=== PATIENT | female | born 1990 | race African-American/Black ===

== ENCOUNTER 2018-08-12 11:43 | Inpatient (IN) | payer OTHER ==
[2018-08-12 13:06] VITALS: BMI 20.5
--- NOTE | 2018-08-12 15:34 | HP ---
CIWA Score - Admission Criteria OASAS Guidelines: Admission for Medically Managed Detox: Requires at least one of the followin. CIWA greater than 12 2. Seizures within the past 24 hours 3. Delirium tremens within the past 24 hours 4. Hallucinations within the past 24 hours 5. Acute intervention needed for co occurring medical disorder 6. Acute intervention needed for co occurring psychiatric disorder 7. Severe withdrawal that cannot be handled at a lower level of care (continued vomiting, continued diarrhea, abnormal vital signs) requiring intravenous medication and/or fluids 8. Admission ROS S - HPI Chief Complaint: "I Need Help." Patient is here for Rehab for Opiate and Alcohol use. Allergies/Adverse Reactions: Allergies Allergy/AdvReac Type Severity Reaction Status Date / Time No Known Drug Allergies Allergy Verified 08/12/18 16:45 shellfish derived Allergy Verified 08/12/18 13:01 History of Present Illness: Patient is a 27 YO Female here for Rehab for Opiates and alcohol. This is patient's first Detox / Rehab Admission. Patient initially contemplated Detox admission; however, she reports that she Does not feel that she needs Detox from Alcohol and that the last time that she used Percocet was 2 days ago and that she feels that Withdrawal symptoms are minimal at this time. Patient offered opportunity to have Detox Admission prior to Rehab admission; however, Patient elects to have Rehab admission at this time. Patient is currently a client at [facility] ( [place], [place]). Search Terms: Ejjuan daniel Carrcker, 1990 Search Date: 08/12/2018 03:27:58 PM The Drug Utilization Report below displays all of the controlled substance prescriptions, if any, that your patient has filled in the last twelve months. The information displayed on this report is compiled from pharmacy submissions to the Department, and accurately reflects the information as submitted by the pharmacies. This report was requested by: Ruslan Warren | Reference #: [id number] There are no results for the search terms that you entered. Exam Limitations: No Limitations - Ebola screening Have you traveled outside of the country in the last 21 days: No Have you had contact with anyone from an Ebola affected area: No Have you been sick,other than usual withdrawal symptoms: No Do you have a fever: No - Review of Systems Constitutional: Loss of Appetite, Night Sweats, Changes in sleep EENT: reports: No Symptoms Reported Respiratory: reports: No Symptoms reported Cardiac: reports: No Symptoms Reported GI: reports: No Symptoms Reported : reports: No Symptoms Reported Musculoskeletal: reports: Back Pain (History of Injury To Lower Back Area (2017) .) Integumentary: reports: No Symptoms Reported Neuro: reports: Tremors Endocrine: reports: No Symptoms Reported Hematology: reports: No Symptoms Reported Psychiatric: reports: Judgement Intact, Mood/Affect Appropiate, Orientated x3, Anxious (No Medication Prescribed in Past.), Depressed (No Medication Prescribed in Past.) Other Systems: Reviewed and Negative Patient History - Patient Medical History Hx Anemia: No Hx Asthma: No Hx Chronic Obstructive Pulmonary Disease (COPD): No Hx Cancer: No Hx Cardiac Disorders: No Hx Congestive Heart Failure: No Hx Hypertension: No Hx Hypercholesterolemia: No Hx Pacemaker: No HX Cerebrovascular Accident: No Hx Seizures: No Hx Dementia: No Hx Diabetes: No Hx Gastrointestinal Disorders: No Hx Liver Disease: No Hx Genitourinary Disorders: No Hx Sexually Transmitted Disorders: No Hx Renal Disease (ESRD): No Hx Thyroid Disease: No Hx Human Immunodeficiency Virus (HIV): No (Last Tested approx. 2 months ago: NEGATIVE.) Hx Hepatitis C: No (Last Tested within last few months: NEGATIVE.) Hx Depression: Yes (No Medication in Past.) Hx Suicide Attempt: No (PATIENT DENIES CURRENT SI / HI.) Hx Bipolar Disorder: No Hx Schizophrenia: No Other Medical History: DENIES. - Patient Surgical History Past Surgical History: No Hx Neurologic Surgery: No Hx Cataract Extraction: No Hx Cardiac Surgery: No Hx Lung Surgery: No Hx Breast Surgery: No Hx Breast Biopsy: No Hx Abdominal Surgery: No Hx Appendectomy: No Hx Cholecystectomy: No Hx Genitourinary Surgery: No Hx Section: No Hx Orthopedic Surgery: No Hx Hysterectomy: No Other Surgical History: DENIES. Anesthesia Reaction: No - PPD History Previous Implant?: Yes Documented Results: Negative w/o proof Implanted On Prior R Admission?: No PPD to be Administered?: Yes - Reproductive History Patient is a Female of Child Bearing Age (11 -55 yrs old): Yes Last Menstrual Period: 08/04/18 Patient : No - Smoking Cessation Smoking history: Current every day smoker Have you smoked in the past 12 months: Yes Aproximately how many cigarettes per day: 6 Cigars Per Day: 0 Hx Chewing Tobacco Use: No Initiated information on smoking cessation: Yes 'Breaking Loose' booklet given: 08/12/18 (TO BE GIVEN TO PATIENT ON UNIT.) - Substance & Tx. History Hx Alcohol Use: Yes Hx Substance Use: Yes Substance Use Type: Alcohol, Marijuana, Opiates Hx Substance Use Treatment: Yes (Currently a Client at [facility] ([place], [place])) - Substances abused Alcohol Substance route: Oral Frequency: Daily Amount used: 5TH HENNESY Age of first use: 19 Date of last use: 08/10/18 Marijuana/Hashish Substance route: Smoking Frequency: Daily Amount used: 4 BLUNTS Age of first use: 21 Date of last use: 08/10/18 Other Other (specify): PERCOCET (NON-PRESCRIBED). Substance route: Oral Frequency: Daily Amount used: 2-3: 10-325 mg tABLETS Age of first use: 24 Date of last use: 08/10/18 Family Disease History - Family Disease History Family Disease History: Other: Mother (HIV) Admission Physical Exam [facility] - Vital Signs Vital Signs: Vital Signs - 24 hr 08/12/18 08/12/18 13:00 15:18 Temperature 98.6 F 98.6 F Pulse Rate 69 69 Respiratory 18 18 Rate Blood Pressure 112/79 112/79 - Physical General Appearance: Yes: No Apparent Distress, Nourished, Appropriately Dressed , Tremorous HEENTM: Yes: Hearing grossly Normal, Normocephalic, Normal Voice, ZAID, Pharynx Normal Respiratory: Yes: Chest Non-Tender, Lungs Clear, No Respiratory Distress, No Accessory Muscle Use Neck: Yes: No masses,lesions,Nodules, Supple, Trachea in good position Breast: Yes: Breast Exam Deferred Cardiology: Yes: Regular Rhythm, Regular Rate, S1, S2 Abdominal: Yes: Normal Bowel Sounds, Non Tender, Flat, Soft Genitourinary: Yes: Within Normal Limits Back: Yes: Decreased Range of Motion Musculoskeletal: Yes: Gait Steady, Back pain Extremities: Yes: Normal Capillary Refill, Normal Range of Motion, Non-Tender, Tremors Neurological: Yes: Fully Oriented, Alert, Normal Mood/Affect, Normal Response Integumentary: Yes: Normal Color, Dry, Warm Lymphatic: Yes: Within Normal Limits - Diagnostic (1) Alcohol dependence, uncomplicated Current Visit: Yes Status: Chronic (2) Uncomplicated opioid dependence Current Visit: Yes Status: Chronic (3) Nicotine dependence Current Visit: Yes Status: Chronic Qualifiers: Nicotine product type: cigarettes Substance use status: uncomplicated Qualified Code(s): F17.210 - Nicotine dependence, cigarettes, uncomplicated (4) Cannabis dependence, uncomplicated Current Visit: Yes Status: Chronic Cleared for Admission [facility] - Detox or Rehab Claeared for Rehab Admission: Yes Breathalyzer - Breathalyzer Breathalyzer: 0.025 Urine Drug Screen - Test Device Lot number: [id number] Expiration date: 05/09/20 - Control Is test valid?: Yes - Results Drug screen NEGATIVE: No Urine drug screen results: THC-Marijuana, OXY-Oxycodone Inpatient Rehab Admission - Rehab Decision to Admit Inpatient rehab admission?: Yes - Initial Determination Are CD services needed?: Yes Free of communicable disease: Yes Not in need of hospitalization: Yes - Rehab Admission Criteria Previous failed treatment: Yes Poor recovery environment: Yes Comorbidities: No Lacks judgement: No Patient is meeting Inpatient Rehab admission criteria:: Yes
[2018-08-12] MEDS ORDERED: MAGNESIUM CITRATE 300 ML BOTTLE PO PRN (16:04)
[2018-08-12] MEDS ORDERED: MENTHOL/PHENOL 1 EACH UD MM PRN (16:04)
[2018-08-12] MEDS ORDERED: P-EPHED 60MG/TRIPROLIDI 2.5MG TABLET PO PRN (16:04)
[2018-08-12] MEDS ORDERED: MAGNESIUM HYDROX 2400MG/30ML ORAL SUSPENSION 30 ML CUP PO PRN (16:04)
[2018-08-12] MEDS ORDERED: guaiFENesin 200 MG/10 ML 10 ML UNIT-DOSE CUPS PO PRN (16:04)
[2018-08-12] MEDS ORDERED: MAG HYDROX/AL HYDROX/SIMETH 30 ML UNIT-DOSE CUP PO PRN (16:04)
[2018-08-12] MEDS ORDERED: NICOTINE POLACRILEX 2 MG GUM BUC PRN (16:04)
[2018-08-12] MEDS ORDERED: LOPERAMIDE HCL 2 MG CAPSULE PO PRN (16:04)
[2018-08-12] MEDS ORDERED: TUBERCULIN PPD 5 TU/0.1ML VIAL ID ONE (17:58)
[2018-08-12] MEDS: NICOTINE 21 MG/24 HOURS TOPICAL PATCH TD SCH (18:16)
[2018-08-12] MEDS: THIAMINE HCL 100 MG TABLET (FP) PO SCH (21:22)
[2018-08-12] MEDS: METHOCARBAMOL 500 MG TABLET PO PRN (21:24)
[2018-08-13] MEDS: PRENATAL VITAMINS W/ FOLIC ACID TABLET (FP) PO SCH (09:38)
[2018-08-13] MEDS: NICOTINE 21 MG/24 HOURS TOPICAL PATCH TD SCH (09:38)
[2018-08-13] MEDS: METHOCARBAMOL 500 MG TABLET PO PRN (09:38)
[2018-08-13 11:44] LABS: BASO % 1.1 % (0-2.0); EOS % 1.4 % (0-4.5); HEMATOCRIT 40.6 % (32.4-45.2); HEMOGLOBIN 13.8 GM/dL (10.7-15.3); LYMPH % 44.7 % (8-40); MEAN CELL VOLUME 91.1 fl (80-96); MEAN PLT VOLUME 8.9 fl (7.5-11.1); MONO % 10.5 % (3.8-10.2); NEUT % 42.3 % (42.8-82.8); PLATELET COUNT 258 K/MM3 (134-434); RBC 4.45 M/mm3 (3.60-5.2); RDW 13.3 % (11.6-15.6)
[2018-08-13 12:00] LABS: ALBUMIN 3.9 g/dl (3.4-5.0); BILIRUBIN,TOTAL 0.4 mg/dL (0.2-1); CALCIUM 9.5 mg/dL (8.5-10.1); CREATININE 0.8 mg/dL (0.55-1.3); POTASSIUM 4.3 mmol/L (3.5-5.1)
[2018-08-13] MEDS: hydrOXYzine PAMOATE 50 MG CAPSULE (FP) PO PRN ×2 (14:27→21:20)
--- NOTE | 2018-08-13 14:27 | PN ---
[facility] Progress Note Note: PT ADMITTED YESTERDAY. CAME TO THE NURSING STATION AND SOBBING. REPORTS SEVERE ANXIETY AND NOT SLEEPING WELL. REPORTS HX OF DEPRESSION AND HAS BEEN UNDER PSYCHIATRIC CARE IN THE PAST. REQUESTS FOR PSYCH FOLLOW UP. ALERT O X 3. DENIES S/H/I. Vital Signs 08/13/18 06:50 Temperature 97.6 F Pulse Rate 57 L Respiratory 18 Rate Blood Pressure 125/82 Laboratory Tests 08/12/18 08/13/18 08/13/18 15:19 08:40 08:40 WBC 3.0 L RBC 4.45 Hgb 13.8 Hct 40.6 MCV 91.1 MCH 31.0 MCHC 34.0 RDW 13.3 Plt Count 258 MPV 8.9 Absolute Neuts (auto) 1.3 L Neutrophils % 42.3 L Lymphocytes % 44.7 H Monocytes % 10.5 H Eosinophils % 1.4 Basophils % 1.1 Nucleated RBC % 0 Sodium 137 Potassium 4.3 Chloride 104 Carbon Dioxide 29 Anion Gap 4 L BUN 9 Creatinine 0.8 Est GFR (CKD-EPI)AfAm 117.93 Est GFR (CKD-EPI)NonAf 101.75 Random Glucose 92 Calcium 9.5 Total Bilirubin 0.4 AST 13 L ALT 26 Alkaline Phosphatase 53 Total Protein 7.0 Albumin 3.9 POC Urine HCG, Qual Negative RPR Titer HIV 1&2 Antibody Screen HIV P24 Antigen 08/13/18 08/13/18 08:40 08:40 WBC RBC Hgb Hct MCV MCH MCHC RDW Plt Count MPV Absolute Neuts (auto) Neutrophils % Lymphocytes % Monocytes % Eosinophils % Basophils % Nucleated RBC % Sodium Potassium Chloride Carbon Dioxide Anion Gap BUN Creatinine Est GFR (CKD-EPI)AfAm Est GFR (CKD-EPI)NonAf Random Glucose Calcium Total Bilirubin AST ALT Alkaline Phosphatase Total Protein Albumin POC Urine HCG, Qual RPR Titer Nonreactive HIV 1&2 Antibody Screen Negative HIV P24 Antigen Negative LABILE MOOD INSOMNIA PLAN:F/U WITH PSYCH CONSULT. ENSURE PLUS REQUESTED INCREASE PO FLUID.
[2018-08-13] MEDS: THIAMINE HCL 100 MG TABLET (FP) PO SCH (21:19)
[2018-08-13] MEDS: MELATONIN 5 MG TABLETS PO PRN (21:20)
[2018-08-14] MEDS: NICOTINE 21 MG/24 HOURS TOPICAL PATCH TD SCH (09:02)
[2018-08-14] MEDS: PRENATAL VITAMINS W/ FOLIC ACID TABLET (FP) PO SCH (09:02)
[2018-08-14] MEDS: METHOCARBAMOL 500 MG TABLET PO PRN (09:04)
[2018-08-14] MEDS ORDERED: PT OWN MED DRAWER 7, Y5N ONE (10:09)
--- NOTE | 2018-08-14 14:23 | CONSULT ---
[facility] Psychiatric Consult - Data Date of interview: 08/14/18 Admission source: [facility] Identifying data: Direct admission to [address] for this 27 y/o AA female, self-referred for rehabilitative care to address addictions (cannabis + opiates) co-morbid with nicotine dependence and a mood disorder. Patient is , no children, domiciled, unemployed and supported on welfare. Substance Abuse History: Discussed in this session. Details in the current [facility] report (validated bty the patient as accurate) : Smoking history: Current every day smoker. Have you smoked in the past 12 months: Yes. Aproximately how many cigarettes per day: 6. Cigars Per Day: 0. Hx Chewing Tobacco Use: No. Initiated information on smoking cessation: Yes. 'Breaking Loose' booklet given : 08/12/18 (TO BE GIVEN TO PATIENT ON UNIT.). - Substance & Tx. History. Hx Alcohol Use: Yes. Hx Substance Use: Yes. Substance Use Type: Alcohol, Marijuana, Opiates. Hx Substance Use Treatment: Yes (Currently a Client at [facility] ([place], [place])). - Substances abused. Alcohol. Substance route: Oral. Frequency: Daily. Amount used: 5TH HENNESY. Age of first use: 19. Date of last use: 08/10/18. Marijuana/Hashish. Substance route: Smoking. Frequency: Daily. Amount used: 4 BLUNTS. Age of first use: 21. Date of last use: 08/10/18. Other. Other (specify): PERCOCET (NON-PRESCRIBED). Substance route: Oral. Frequency: Daily. Amount used: 2-3: 10-325 mg tABLETS. Age of first use: 24. Date of last use: 08/10/18 Medical History: Patient endorses good general health. Psychiatric History: Patient admits to a distant history of psychiatric hospitalizations ([place]) during childhood for behavioral disturbances. No psychiatric hospitalizations for several years (last admission to a mental institution was in childhood). Ms Zurita indicates that she has been prescribed sertraline for depression + anxiety in the past (not taken for months). She is currently attending the [facility] in the [place]. History of self-mutilation (cutting). No episode since adolescence. Physical/Sexual Abuse/Trauma History: Patient denies history of abuse. Additional Comment: Urine drug screen results: THC-Marijuana, OXY-Oxycodone. Noted. Mental Status Exam - Mental Status Exam Alert and Oriented to: Time, Place, Person Cognitive Function: Good Patient Appearance: Well Groomed (thin habitus, neatly groomed) Mood: Hopeful, Euthymic Affect: Appropriate, Normal Range Patient Behavior: Appropriate (well-mannered), Cooperative Speech Pattern: Clear, Appropriate Voice Loudness: Normal Thought Process: Intact, Goal Oriented Thought Disorder: Not Present Hallucinations: Denies Suicidal Ideation: Denies Homicidal Ideation: Denies Insight/Judgement: Fair Sleep: Poorly (agrees to take a low dose of seroquel), Difficulty falling asleep Appetite: Good Gait/Station: Normal Psychiatric Findings - Problem List ([place] 1, 2,3) (1) Alcohol dependence, uncomplicated Current Visit: Yes Status: Chronic (2) Cannabis dependence, uncomplicated Current Visit: Yes Status: Chronic (3) Uncomplicated opioid dependence Current Visit: Yes Status: Chronic (4) Nicotine dependence Current Visit: Yes Status: Chronic Qualifiers: Nicotine product type: cigarettes Substance use status: uncomplicated Qualified Code(s): F17.210 - Nicotine dependence, cigarettes, uncomplicated (5) Substance induced mood disorder Current Visit: No Status: Suspected (6) History of anxiety disorder Current Visit: Yes Status: Chronic (7) Insomnia Current Visit: Yes Status: Chronic - Initial Treatment Plan Initial Treatment Plan: Psychoeducation. Support. Sleep hygiene. Relapse prevention (MAT) to be revisited with the patient throughout hospital course. AA /NA meetings. Groups. Seroquel 50 mg po hs. Ordered at patient's request (past history of good response to that medication for sleep improvement). Side effects /benefits discussed in session. Ms Zurita is made aware of the risk of metabolic syndrome, sedation, restless leg syndrome, falls and orthostasis. Verbal consent given to MD. Ashton.
[2018-08-14] MEDS: THIAMINE HCL 100 MG TABLET (FP) PO SCH (21:25)
[2018-08-14] MEDS: QUEtiapine FUMARATE 50 MG TABLET PO SCH (21:26)
[2018-08-15] MEDS ORDERED: COLLOIDAL OATMEAL 1 BAR EACH TP PRN (08:20)
[2018-08-15] MEDS: PRENATAL VITAMINS W/ FOLIC ACID TABLET (FP) PO SCH (09:39)
[2018-08-15] MEDS: hydrOXYzine PAMOATE 50 MG CAPSULE (FP) PO PRN ×2 (09:39→22:08)
[2018-08-15] MEDS: METHOCARBAMOL 500 MG TABLET PO PRN (09:39)
[2018-08-15] MEDS: NICOTINE 21 MG/24 HOURS TOPICAL PATCH TD SCH (09:39)
--- NOTE | 2018-08-15 11:46 | PN ---
[facility] Progress Note Note: long history of eczema elbows and knees eucerin cream with aveeno soap
[2018-08-15] MEDS: MINERAL OIL/PETROLAT/WATER TOPICAL CREAM 113 GM JAR TP SCH (12:54)
--- NOTE | 2018-08-15 17:50 | PN ---
[facility] Progress Note Note: Vital Signs Temperature 98.3 F 08/15/18 06:46 Pulse Rate 79 08/15/18 06:46 Respiratory Rate 18 08/15/18 06:46 Blood Pressure 111/73 08/15/18 06:46 O2 Sat by Pulse Oximetry (%) Patient c/o of allergies to shellfish, reports feeling itchy throat, throat tightness and tingling after consuming the tuna fish, reports this is the first time she has experience this after consuming the tuna. v/s bp 97.4, bp 123/85, p75, rr18 Patient AOx3, no respiratory distress, anxious EENT WNL, no throat edema or swelling noted no adventitious breath sounds full ROM Benadryl 50 mg PO Prednisone 40 mg x1 Evaluate [facility]
[2018-08-15] MEDS ORDERED: diphenhydrAMINE HCL 50 MG CAPSULE PO ONE (18:00)
[2018-08-15] MEDS ORDERED: predniSONE 20 MG TABLET (UD) PO ONE (18:00)
[2018-08-15] MEDS: MELATONIN 5 MG TABLETS PO PRN (22:07)
[2018-08-15] MEDS: THIAMINE HCL 100 MG TABLET (FP) PO SCH (22:07)
[2018-08-15] MEDS: QUEtiapine FUMARATE 50 MG TABLET PO SCH (22:08)
[2018-08-16] MEDS ORDERED: PT OWN MED DRAWER 7, Y5N ONE (08:35)
--- NOTE | 2018-08-16 09:43 | PN ---
[facility] Progress Note Note: 27 years old female admitted on 08/12/18 for alcohol and opiate rehab had tuna allergic reaction yesterday 08/15/18 treated at ER with benadryl and prednison, return to 3E observed the patient lying on bed alert no shortness of breath speech clearly denies trouble breathing denies trouble swallowing regular food nor fluid ADL's independent
[2018-08-16] MEDS: PRENATAL VITAMINS W/ FOLIC ACID TABLET (FP) PO SCH (09:46)
[2018-08-16] MEDS: METHOCARBAMOL 500 MG TABLET PO PRN (09:47)
[2018-08-16] MEDS: hydrOXYzine PAMOATE 50 MG CAPSULE (FP) PO PRN (09:47)
[2018-08-16] MEDS: NICOTINE 21 MG/24 HOURS TOPICAL PATCH TD SCH (09:47)
[2018-08-16] MEDS: MINERAL OIL/PETROLAT/WATER TOPICAL CREAM 113 GM JAR TP SCH (09:47)
[2018-08-16] MEDS ORDERED: diphenhydrAMINE HCL 50 MG CAPSULE PO PRN (09:50)
[2018-08-16] MEDS: THIAMINE HCL 100 MG TABLET (FP) PO SCH (21:00)
[2018-08-16] MEDS: QUEtiapine FUMARATE 50 MG TABLET PO SCH (21:01)
[2018-08-17] MEDS: PRENATAL VITAMINS W/ FOLIC ACID TABLET (FP) PO SCH (09:39)
[2018-08-17] MEDS: MINERAL OIL/PETROLAT/WATER TOPICAL CREAM 113 GM JAR TP SCH (09:39)
[2018-08-17] MEDS: METHOCARBAMOL 500 MG TABLET PO PRN (09:39)
[2018-08-17] MEDS: NICOTINE 21 MG/24 HOURS TOPICAL PATCH TD SCH (09:39)
--- NOTE | 2018-08-17 10:56 | PN ---
[facility] Progress Note Note: per RN, patient requesting vistaril for anxiety - same Rx.
[2018-08-17] MEDS: hydrOXYzine PAMOATE 25 MG CAPSULE (FP) PO PRN ×2 (13:36→21:06)
[2018-08-17] MEDS: QUEtiapine FUMARATE 50 MG TABLET PO SCH (21:06)
[2018-08-17] MEDS: THIAMINE HCL 100 MG TABLET (FP) PO SCH (21:06)
[2018-08-18] MEDS: hydrOXYzine PAMOATE 25 MG CAPSULE (FP) PO PRN ×2 (09:52→21:03)
[2018-08-18] MEDS: PRENATAL VITAMINS W/ FOLIC ACID TABLET (FP) PO SCH (09:52)
[2018-08-18] MEDS: MINERAL OIL/PETROLAT/WATER TOPICAL CREAM 113 GM JAR TP SCH (09:53)
[2018-08-18] MEDS: NICOTINE 21 MG/24 HOURS TOPICAL PATCH TD SCH (09:53)
[2018-08-18] MEDS: METHOCARBAMOL 500 MG TABLET PO PRN (17:38)
[2018-08-18] MEDS ORDERED: METHOCARBAMOL 500 MG TABLET PO SCH (18:00)
[2018-08-18] MEDS: QUEtiapine FUMARATE 50 MG TABLET PO SCH (21:03)
[2018-08-18] MEDS: THIAMINE HCL 100 MG TABLET (FP) PO SCH (21:03)
[2018-08-19] MEDS: MINERAL OIL/PETROLAT/WATER TOPICAL CREAM 113 GM JAR TP SCH (09:43)
[2018-08-19] MEDS: PRENATAL VITAMINS W/ FOLIC ACID TABLET (FP) PO SCH (09:43)
[2018-08-19] MEDS: NICOTINE 21 MG/24 HOURS TOPICAL PATCH TD SCH (09:43)
[2018-08-19] MEDS: METHOCARBAMOL 500 MG TABLET PO PRN (09:44)
[2018-08-19] MEDS: hydrOXYzine PAMOATE 25 MG CAPSULE (FP) PO PRN ×2 (09:51→15:53)
[2018-08-19] MEDS: QUEtiapine FUMARATE 50 MG TABLET PO SCH (21:32)
[2018-08-19] MEDS: THIAMINE HCL 100 MG TABLET (FP) PO SCH (21:33)
[2018-08-19] MEDS: MELATONIN 5 MG TABLETS PO PRN (22:31)
[2018-08-20] MEDS: METHOCARBAMOL 500 MG TABLET PO PRN (06:51)
[2018-08-20] MEDS: hydrOXYzine PAMOATE 25 MG CAPSULE (FP) PO PRN ×3 (06:51→22:10)
[2018-08-20] MEDS ORDERED: PT OWN MED DRAWER 7, Y5N ONE (08:18)
[2018-08-20] MEDS: MINERAL OIL/PETROLAT/WATER TOPICAL CREAM 113 GM JAR TP SCH (09:08)
[2018-08-20] MEDS: NICOTINE 21 MG/24 HOURS TOPICAL PATCH TD SCH (09:08)
[2018-08-20] MEDS: PRENATAL VITAMINS W/ FOLIC ACID TABLET (FP) PO SCH (09:08)
[2018-08-20] MEDS ORDERED: COLLOIDAL OATMEAL 1 BAR EACH TP PRN (15:32)
--- NOTE | 2018-08-20 15:32 | PN ---
[facility] Progress Note Note: PT C/O WHITE COTTAGE CHEESE VAGINAL DISCHARGE. REPORTS NO BURNING, NO ITCHINESS BUT HAS HAD PREVIOUS SYMPTOMS AND WANTS TO BE TREATED FOR YEAST INFECTION. Vital Signs - 24 hr 08/20/18 06:53 Temperature 98 F Pulse Rate 88 Respiratory 18 Rate Blood Pressure 119/70 Laboratory Tests 08/12/18 08/13/18 08/13/18 15:19 08:40 08:40 WBC 3.0 L RBC 4.45 Hgb 13.8 Hct 40.6 MCV 91.1 MCH 31.0 MCHC 34.0 RDW 13.3 Plt Count 258 MPV 8.9 Absolute Neuts (auto) 1.3 L Neutrophils % 42.3 L Lymphocytes % 44.7 H Monocytes % 10.5 H Eosinophils % 1.4 Basophils % 1.1 Nucleated RBC % 0 Sodium 137 Potassium 4.3 Chloride 104 Carbon Dioxide 29 Anion Gap 4 L BUN 9 Creatinine 0.8 Est GFR (CKD-EPI)AfAm 117.93 Est GFR (CKD-EPI)NonAf 101.75 Random Glucose 92 Calcium 9.5 Total Bilirubin 0.4 AST 13 L ALT 26 Alkaline Phosphatase 53 Total Protein 7.0 Albumin 3.9 POC Urine HCG, Qual Negative RPR Titer HIV 1&2 Antibody Screen HIV P24 Antigen 08/13/18 08/13/18 08:40 08:40 WBC RBC Hgb Hct MCV MCH MCHC RDW Plt Count MPV Absolute Neuts (auto) Neutrophils % Lymphocytes % Monocytes % Eosinophils % Basophils % Nucleated RBC % Sodium Potassium Chloride Carbon Dioxide Anion Gap BUN Creatinine Est GFR (CKD-EPI)AfAm Est GFR (CKD-EPI)NonAf Random Glucose Calcium Total Bilirubin AST ALT Alkaline Phosphatase Total Protein Albumin POC Urine HCG, Qual RPR Titer Nonreactive HIV 1&2 Antibody Screen Negative HIV P24 Antigen Negative A:R/O MASOUD INFECTION DIFLUCAN 150 MG PO ONCE ONLY. INCREASE PO FLUIDS.
[2018-08-20] MEDS ORDERED: FLUCONAZOLE 50 MG TABLET PO ONE (16:45)
[2018-08-20] MEDS: THIAMINE HCL 100 MG TABLET (FP) PO SCH (22:10)
[2018-08-20] MEDS: QUEtiapine FUMARATE 50 MG TABLET PO SCH (22:11)
[2018-08-21] MEDS: MINERAL OIL/PETROLAT/WATER TOPICAL CREAM 113 GM JAR TP SCH (09:18)
[2018-08-21] MEDS: NICOTINE 21 MG/24 HOURS TOPICAL PATCH TD SCH (09:18)
[2018-08-21] MEDS: PRENATAL VITAMINS W/ FOLIC ACID TABLET (FP) PO SCH (09:18)
[2018-08-21] MEDS: hydrOXYzine PAMOATE 25 MG CAPSULE (FP) PO PRN ×3 (09:20→22:18)
[2018-08-21] MEDS: METHOCARBAMOL 500 MG TABLET PO PRN (09:20)
[2018-08-21] MEDS: QUEtiapine FUMARATE 50 MG TABLET PO SCH (22:18)
[2018-08-21] MEDS: MELATONIN 5 MG TABLETS PO PRN (22:18)
[2018-08-21] MEDS: THIAMINE HCL 100 MG TABLET (FP) PO SCH (22:19)
[2018-08-22] MEDS: NICOTINE 21 MG/24 HOURS TOPICAL PATCH TD SCH (09:46)
[2018-08-22] MEDS: MINERAL OIL/PETROLAT/WATER TOPICAL CREAM 113 GM JAR TP SCH (09:46)
[2018-08-22] MEDS: PRENATAL VITAMINS W/ FOLIC ACID TABLET (FP) PO SCH (09:46)
[2018-08-22] MEDS: hydrOXYzine PAMOATE 25 MG CAPSULE (FP) PO PRN (09:47)
[2018-08-22] MEDS: METHOCARBAMOL 500 MG TABLET PO PRN (09:47)
[2018-08-22] MEDS: THIAMINE HCL 100 MG TABLET (FP) PO SCH (21:47)
[2018-08-22] MEDS: MELATONIN 5 MG TABLETS PO PRN (21:48)
[2018-08-22] MEDS: QUEtiapine FUMARATE 50 MG TABLET PO SCH (21:48)
[2018-08-23] MEDS: hydrOXYzine PAMOATE 25 MG CAPSULE (FP) PO PRN ×3 (07:32→22:31)
[2018-08-23] MEDS: PRENATAL VITAMINS W/ FOLIC ACID TABLET (FP) PO SCH (09:42)
[2018-08-23] MEDS: METHOCARBAMOL 500 MG TABLET PO PRN (09:44)
--- NOTE | 2018-08-23 11:25 | PN ---
[facility] Progress Note (SOAP) Subjective: PT IS SCHEDULED TO DISCHARGE ON 08/26/18. PT MET WITH HER COUNSELOR AND HAS BEEN REFERRED TO [facility] FOR CD AFTERCARE AT [address], [place]. REPORTS SHE HAS A PCP ON [phone]([facility] NAME OF PROVIDER). ALERT O X 3. DENIES S/H/I. Objective: 08/23/18 11:24 Vital Signs - 24 hr 08/23/18 08/23/18 08/23/18 00:30 03:30 07:10 Temperature 97.7 F Pulse Rate 89 Respiratory 16 16 18 Rate Blood Pressure 120/77 Laboratory Tests 08/12/18 08/13/18 08/13/18 15:19 08:40 08:40 WBC 3.0 L RBC 4.45 Hgb 13.8 Hct 40.6 MCV 91.1 MCH 31.0 MCHC 34.0 RDW 13.3 Plt Count 258 MPV 8.9 Absolute Neuts (auto) 1.3 L Neutrophils % 42.3 L Lymphocytes % 44.7 H Monocytes % 10.5 H Eosinophils % 1.4 Basophils % 1.1 Nucleated RBC % 0 Sodium 137 Potassium 4.3 Chloride 104 Carbon Dioxide 29 Anion Gap 4 L BUN 9 Creatinine 0.8 Est GFR (CKD-EPI)AfAm 117.93 Est GFR (CKD-EPI)NonAf 101.75 Random Glucose 92 Calcium 9.5 Total Bilirubin 0.4 AST 13 L ALT 26 Alkaline Phosphatase 53 Total Protein 7.0 Albumin 3.9 POC Urine HCG, Qual Negative RPR Titer HIV 1&2 Antibody Screen HIV P24 Antigen 08/13/18 08/13/18 08:40 08:40 WBC RBC Hgb Hct MCV MCH MCHC RDW Plt Count MPV Absolute Neuts (auto) Neutrophils % Lymphocytes % Monocytes % Eosinophils % Basophils % Nucleated RBC % Sodium Potassium Chloride Carbon Dioxide Anion Gap BUN Creatinine Est GFR (CKD-EPI)AfAm Est GFR (CKD-EPI)NonAf Random Glucose Calcium Total Bilirubin AST ALT Alkaline Phosphatase Total Protein Albumin POC Urine HCG, Qual RPR Titer Nonreactive HIV 1&2 Antibody Screen Negative HIV P24 Antigen Negative Home Medications Medication Instructions Recorded Acetaminophen [Tylenol] 325 mg PO PRN 08/15/18 Hydroxyzine HCl 50 mg PO PRN 08/15/18 Ibuprofen [Motrin -] 400 mg PO PRN 08/15/18 Nicotine [Nicotine Patch 21 mg/24 1 each TD DAILY 08/15/18 hr] Quetiapine Fumarate [Seroquel -] 50 mg PO HS 08/15/18 Thiamine HCl [B-1] 100 mg PO HS 08/15/18 Quetiapine Fumarate [Seroquel -] 50 mg PO HS #30 tablet 08/25/18 Assessment: 08/23/18 11:24 NAD MEDICALLY STABLE Plan: FOLLOW UP WITH CD AFTERCARE RECOMMENDED. FOLLOW UP WITH PCP FOR MEDICAL MANAGEMENT 1-2 WEEKS AFTER DISCHARGE.
[2018-08-23] MEDS: MINERAL OIL/PETROLAT/WATER TOPICAL CREAM 113 GM JAR TP SCH (11:49)
[2018-08-23] MEDS: NICOTINE 21 MG/24 HOURS TOPICAL PATCH TD SCH (11:50)
[2018-08-23] MEDS ORDERED: PT OWN MED DRAWER 7, Y5N ONE ×2 (12:22→21:06)
[2018-08-23] MEDS: QUEtiapine FUMARATE 50 MG TABLET PO SCH (22:31)
[2018-08-23] MEDS: MELATONIN 5 MG TABLETS PO PRN (22:31)
[2018-08-23] MEDS: THIAMINE HCL 100 MG TABLET (FP) PO SCH (22:31)
[2018-08-24] MEDS ORDERED: PT OWN MED DRAWER 7, Y5N ONE (08:40)
[2018-08-24] MEDS: PRENATAL VITAMINS W/ FOLIC ACID TABLET (FP) PO SCH (09:22)
[2018-08-24] MEDS: NICOTINE 21 MG/24 HOURS TOPICAL PATCH TD SCH (09:22)
[2018-08-24] MEDS: MINERAL OIL/PETROLAT/WATER TOPICAL CREAM 113 GM JAR TP SCH (09:22)
[2018-08-24] MEDS: METHOCARBAMOL 500 MG TABLET PO PRN (09:23)
[2018-08-24] MEDS: hydrOXYzine PAMOATE 25 MG CAPSULE (FP) PO PRN ×3 (09:23→21:31)
[2018-08-24] MEDS: IBUPROFEN 400 MG TABLET (FP) PO PRN ×2 (11:36→17:48)
[2018-08-24] MEDS: ACETAMINOPHEN 325 MG TABLET (FP) PO PRN ×2 (14:57→21:32)
[2018-08-24] MEDS: THIAMINE HCL 100 MG TABLET (FP) PO SCH (21:31)
[2018-08-24] MEDS: QUEtiapine FUMARATE 50 MG TABLET PO SCH (22:25)
[2018-08-25] MEDS: PRENATAL VITAMINS W/ FOLIC ACID TABLET (FP) PO SCH (09:03)
[2018-08-25] MEDS: MINERAL OIL/PETROLAT/WATER TOPICAL CREAM 113 GM JAR TP SCH (09:03)
[2018-08-25] MEDS: hydrOXYzine PAMOATE 25 MG CAPSULE (FP) PO PRN ×2 (09:03→16:28)
[2018-08-25] MEDS: METHOCARBAMOL 500 MG TABLET PO PRN ×2 (09:03→16:28)
[2018-08-25] MEDS: NICOTINE 21 MG/24 HOURS TOPICAL PATCH TD SCH (09:04)
[2018-08-25] MEDS: IBUPROFEN 400 MG TABLET (FP) PO PRN ×2 (11:09→17:45)
[2018-08-25] MEDS ORDERED: COLLOIDAL OATMEAL 1 BAR EACH TP PRN (11:17)
--- NOTE | 2018-08-25 14:23 | PN ---
[facility] Progress Note Note: Patient is scheduled for discharge tomorrow. Script for 30 days supply of Seroquel 50 mg/hs will be electronically transmitted to [facility] at [address] [place] [id number]
[2018-08-25] MEDS: QUEtiapine FUMARATE 50 MG TABLET PO SCH (21:19)
[2018-08-25] MEDS: THIAMINE HCL 100 MG TABLET (FP) PO SCH (21:19)
[2018-08-25] MEDS: MELATONIN 5 MG TABLETS PO PRN (21:19)
[2018-08-26] MEDS: ACETAMINOPHEN 325 MG TABLET (FP) PO PRN (05:53)
[2018-08-26] MEDS: METHOCARBAMOL 500 MG TABLET PO PRN (05:55)
[2018-08-26 06:55] VITALS: BP 117/78; PULSE 75; TEMP 97.5
[2018-08-26] MEDS: hydrOXYzine PAMOATE 25 MG CAPSULE (FP) PO PRN (07:51)
--- NOTE | 2018-08-26 12:18 | PN ---
[facility] Progress Note Note: PT DISCHARGED TODAY. ALERT O X 3. NAD. D/W PT TO FOLLOW UP RECOMMENDED. Vital Signs - 24 hr 08/26/18 08/26/18 00:30 06:55 Temperature 97.5 F L Pulse Rate 75 Respiratory 16 18 Rate Blood Pressure 117/78
== END 2018-08-26 09:20 | disposition home or self-care (01) | DRG 772 ==
LOC: YASAS 11:43 → Y3E 16:55
PROVIDERS: ADMIT Neuromusculoskeletal Medicine & OMM; ATTEND Surgery
PROC: HZ42ZZZ Group Counseling for Substance Abuse Treatment, Cognitive-Behavioral (ICD-10-PCS; principal; 2018-08-12)
DX: F11.20 Opioid dependence, uncomplicated (principal); F10.20 Alcohol dependence, uncomplicated; F12.20 Cannabis dependence, uncomplicated; F17.210 Nicotine dependence, cigarettes, uncomplicated; F19.24 Other psychoactive substance dependence with psychoactive substance-induced mood disorder; G47.00 Insomnia, unspecified; L30.9 Dermatitis, unspecified; B37.3 Candidiasis of vulva and vagina; R20.2 Paresthesia of skin; R09.89 Other specified symptoms and signs involving the circulatory and respiratory systems; Z91.013 Allergy to seafood
CPT/HCPCS: 36415; 80053; 81025; 85025; 86593; 87389

== ENCOUNTER 2018-08-15 18:40 | Emergency (ER) | payer OTHER | END 2018-08-15 21:46 | disposition home or self-care (01) | LOC: JER 18:40 ==